=== PATIENT | female | born 1965 | race Caucasian/White ===

== ENCOUNTER 2018-05-01 12:04 | Emergency (ER) | payer OTHER ==
[~2018-05-01] VITALS: Ht 162.6 cm; Wt 94.0 kg
[~2018-05-01 12:04] MED LIST: ATIVAN1 M1 PO; BENTYL10 MG PO; CIPROFLOXACIN500 MG PO; LEVOTHYROXINE50 MCG PO; LIPITOR20 M2 PO; ONDANSETRON ODT4 MG PO; PYRIDIUM100 MG PO; SERTRALINE HCL100 MG PO; VICODIN5-300 PO; ZOFRAN4 M1 PO
[2018-05-01 12:43] LABS: ABSOLUTE BASOPHIL COUNT 0 /CUMM (0.0-0.2); ABSOLUTE EOSINOPHIL COUNT 0.1 /CUMM (0.0-0.7); ABSOLUTE GRANULOCYTE CT 2.5 /CUMM (1.4-6.5); ABSOLUTE LYMPH COUNT 2.1 /CUMM (1.2-3.4); ABSOLUTE MONOCYTE COUNT 0.6 /CUMM (0.10-0.60); BASOPHIL % 0.6 % (0.0-2.0); EOSINOPHIL % 1.5 % (0-5); GRANULOCYTE % 48.1 % (42.2-75.2); HEMATOCRIT 39.1 % (37-47); MEAN CORPUSCULAR HGB 28.3 PG (27.0-31.0); MEAN CORPUSCULAR HGB CONC 34.3 G/DL (33.0-37.0); MEAN CORPUSCULAR VOLUME 82.4 FL (81.0-99.0); MEAN PLATELET VOLUME 8.8 FL (7.4-10.4); PLATELET COUNT 255 /CUMM (130-400); RBC DISTRIBUTION WIDTH 14.1 % (11.5-14.5); RED BLOOD CELL CT 4.74 /CUMM (4.20-5.40); WHITE BLOOD CELL COUNT 5.3 /CUMM (4.8-10.8)
--- NOTE | 2018-05-01 13:52 | ED GI/GU/ABDOMINAL COMPLAINT ---
History of Present Illness General Chief Complaint: Abdominal Pain/Flank Pain Stated Complaint: ABD PAIN Source: patient Exam Limitations: no limitations Vital Signs & Intake/Output Vital Signs & Intake/Output Vital Signs Date Time Temp Pulse Resp B/P B/P Pulse O2 O2 Flow FiO2 Mean Ox Delivery Rate 05/01 1426 Room Air 05/01 1425 98.8 72 18 121/68 97 Room Air 05/01 1210 97.7 78 20 141/93 99 Room Air ED Intake and Output 05/02 0000 05/01 1200 Intake Total 0 Output Total Balance 0 Intake, Oral 0 Patient 207 lb Weight Weight Estimated Measurement Method Allergies Coded Allergies: venom-honey bee (BEE VENOM (HONEY BEE)) (Severe, ANAPHYLAXIS 11/18/15) amoxicillin (NAUSEA 11/18/15) Reconcile Medications Atorvastatin Calcium (Lipitor) 20 MG TABLET 1 TAB PO DAILY CHOLESTEROL ( Reported) Hydrocodone/Acetaminophen ([place] 5-325 Tablet) 5 MG-325 MG TABLET 1 TAB PO Q4- 6 PRN PRN PAIN SEVERE ONLY Ibuprofen 800 MG TABLET 1 TAB PO TID PRN PAIN Levothyroxine Sodium 50 MCG TABLET 1 TAB PO DAILY AC THYROID (Reported) LORazepam (Ativan) 1 MG TAB 1 TAB PO TID ANXIETY (Reported) Meclizine HCl 25 MG TABLET 1 TAB PO TIDPRN DIZZY Sertraline HCl 100 MG TABLET 1 TAB PO DAILY MENTAL HEALTH (Reported) Triage Note: PT SENT TO ED BY DR FRANKLIN FOR RLQ PAIN RADIATING TO BACK X A FEW DAYS. ALSO C/O NAUSEA AND VERTIGO. PT WENT TO SEE DR FRANKLIN FOR ? UTI, PT STATES HER URINE WAS FINE. Triage Nurses Notes Reviewed? yes LMP (ages 10-50): unknown ? N Is pt currently ? No Onset: Abrupt Duration: day(s): (3-4), constant, continues in ED Timing: single episode today Severity Numbers: 7 Location: right lower quadrant Radiation: back Prior Abdominal Problems: none Past Sexual History: Unobtainable at this time HPI: 52-year-old female past medical history of hyperlipidemia, hypothyroidism presents for evaluation of right lower quadrant abdominal pain. Patient reports symptoms started about 4 days ago and been persistent. The pain is located in the right lower quadrant and radiates to the right flank and right back. She reports some associated nausea but no vomiting no diarrhea no fevers urinary symptoms vaginal discharge or vaginal bleeding. There is no trauma or triggering event. No bowel or bladder dysfunction or numbness or tingling she's been taking ibuprofen without much improvement. She went to her primary care doctor today for evaluation of the pain but was sent in to rule out appendicitis. Past History Travel History Traveled to [place] past 21 day No Medical History Any Pertinent Medical History? see below for history Neurological: NONE EENT: NONE Cardiovascular: hyperlipidemia Respiratory: NONE Gastrointestinal: NONE Hepatic: NONE Renal: NONE Musculoskeletal: NONE Psychiatric: anxiety, depression Endocrine: hypothyroidism Blood Disorders: NONE Cancer(s): NONE PRODUCT MANAGEMENT MANAGER/Reproductive: NONE Surgical History Surgical History: non-contributory Psychosocial History What is your primary language Uzbek Tobacco Use: Never used ETOH Use: occasional use Illicit Drug Use: denies illicit drug use Family History Hx Contributory? No Review of Systems Review of Systems Constitutional: Reports: no symptoms. EENTM: Reports: no symptoms. Respiratory: Reports: no symptoms. Cardiovascular: Reports: no symptoms. GI: Reports: see HPI, abdominal pain, nausea. Genitourinary: Reports: no symptoms. Musculoskeletal: Reports: see HPI, back pain. Skin: Reports: no symptoms. Neurological/Psychological: Reports: no symptoms. Hematologic/Endocrine: Reports: no symptoms. Immunologic/Allergic: Reports: no symptoms. All Other Systems: Reviewed and Negative Physical Exam Physical Exam General Appearance: well developed/nourished, no apparent distress, alert, awake Head: atraumatic, normal appearance Eyes: Bilateral: normal appearance, PERRL, EOMI. Ears, Nose, Throat, Mouth: moist mucous membrane Neck: normal inspection, supple, full range of motion Respiratory: normal breath sounds, chest non-tender, no respiratory distress, lungs clear Cardiovascular: regular rate/rhythm, normal peripheral pulses Peripheral Pulses: 2+ radial (R), 2+ radial (L) Gastrointestinal: normal bowel sounds, soft, no organomegaly, tenderness (RLQ) Back: normal inspection, normal range of motion, no vertebral tenderness, RIGHT- SIDED LUMBAR PARASPINAL MUSCLE IS TENDER TO PALPATION. nO MIDLINE TENDERNESS NO cva TENDERNESS Extremities: normal range of motion Neurologic/Psych: no motor/sensory deficits, awake, alert, oriented x 3, normal gait, normal mood/affect Skin: intact, normal color, warm/dry Core Measures ACS in differential dx? No Sepsis Present: No Sepsis Focused Exam Completed? No Progress Differential Diagnosis: appendicitis, biliary colic, bowel obstruction, cholecystitis, inflamm bowel dis, kidney stone, pancreatitis, perforated viscous , SBO, UTI/pyelo Plan of Care: Orders Procedure Date/time Status URINALYSIS 05/01 1211 Complete LIPASE 05/01 1211 Complete COMPREHENSIVE METABOLIC PANEL 05/01 1211 Complete CBC WITHOUT DIFFERENTIAL 05/01 1211 Complete Laboratory Tests 05/01/18 1231: Urine Color YEL, Urine Clarity CLEAR, Urine pH 7.5, Ur Specific [place] 1.010, Urine Protein NEG, Urine Ketones NEG, Urine Nitrite NEG, Urine Bilirubin NEG, Urine Urobilinogen 0.2, Ur Leukocyte Esterase NEG, Ur Microscopic SEDIMENT EXAMINED, Urine RBC RARE, Urine WBC RARE, Ur Epithelial Cells RARE, Urine Hemoglobin TRACE-INTACT, Urine Glucose NEG 05/01/18 1226: Anion Gap 8, Estimated GFR > 60, BUN/Creatinine Ratio 15.6, Glucose 99, Calcium 10.0, Total Bilirubin 0.5, AST 23, ALT 28, Alkaline Phosphatase 74, Total Protein 7.7, Albumin 4.8, Globulin 2.9, Albumin/Globulin Ratio 1.7, Lipase 86, CBC w Diff NO MAN DIFF REQ, RBC 4.74, MCV 82.4, MCH 28.3, MCHC 34.3, RDW 14.1, MPV 8.8, Gran % 48.1, Lymphocytes % 39.1, Monocytes % 10.7 H, Eosinophils % 1.5 , Basophils % 0.6, Absolute Granulocytes 2.5, Absolute Lymphocytes 2.1, Absolute Monocytes 0.6, Absolute Eosinophils 0.1, Absolute Basophils 0 Patient is here for evaluation of right lower quadrant abdominal pain this been going on for about 4 days. The pain radiates into the flank and back. She's never had this before and denies abdominal surgeries no fevers reports nausea but no vomiting. Her vital signs are stable. Labs and a CT scan was ordered. Blood work and CT scan are unremarkable. Reviewed results with patient. Advised to continue ibuprofen as needed for pain and Zofran for nausea [place] for severe pain only advised to fern picker a stool softener with this. Follow-up with the primary care doctor for recheck. Discussed return precautions patient agrees the plan Diagnostic Imaging: Viewed by Me: CT Scan. Discussed w/RAD: CT Scan. Radiology Impression: PATIENT: CAREN JEFFERS V PRESENT AGE: 52 PATIENT ACCOUNT NO: [id number] : 63 LOCATION: [facility] ORDERING PHYSICIAN: Umair DOSS SERVICE DATE: 05/01/18 EXAM TYPE: CAT - CT ABD & PELVIS W IV CONTRAST EXAMINATION: CT ABDOMEN AND PELVIS WITH CONTRAST CLINICAL INFORMATION: Right lower quadrant abdominal pain, nausea. Presumptive diagnosis of appendicitis. COMPARISON: T scan of the abdomen and pelvis dated 08/24/2015, and 06/16/2013. TECHNIQUE: Multidetector CT volumetric acquisition of the abdomen and pelvis was performed after the administration of 95 mL of intravenous Optiray 320. The data set was reformatted in the sagittal and coronal planes and reviewed on an independent workstation. DLP: 415.35 mGy-cm. FINDINGS: LOWER CHEST: Included lung bases unremarkable. LIVER, GALLBLADDER, BILIARY TREE: Liver normal size and attenuation. No focal cystic or solid mass or intra-or extrahepatic ductal dilatation. Hepatic and portal veins patent. Gallbladder partially distended and within normal limits. PANCREAS: Normal. No ductal dilatation, mass, or surrounding stranding. SPLEEN: Normal size and appearance. Splenic vein patent. ADRENAL GLANDS AND KIDNEYS: Adrenal glands normal. Kidneys bilaterally symmetric in size and function. No focal mass, hydronephrosis, nephrolithiasis or perinephric stranding. URETERS AND BLADDER: Ureters decompressed and within normal limits. Bladder partially distended and within normal limits. PELVIC ORGANS: Again seen is a subserosal contour deforming posterior and left-sided uterine body fibroid, unchanged. Small amount of gas seen in the vagina, likely due to exogenous introduction. No suspicious adnexal mass. GASTROINTESTINAL TRACT: Normal. Small and large bowel loops decompressed. Appendix is not definitively visualized in its entirety, but no focal inflammatory process is seen in the right lower quadrant and the appearance is unchanged compared to prior exams. ABDOMINAL WALL: Tiny fat- containing umbilical hernia is seen. LYMPHOVASCULAR STRUCTURES: Abdominal aorta normal in caliber. No periaortic collections. No abdominal or pelvic adenopathy or free fluid collection. BONES: Moderate degenerative disc disease at the lumbosacral junction with disc space narrowing, vacuum disc phenomenon and vertebral endplate sclerosis and spurring seen. Mild facet arthropathy in lower lumbar spine. IMPRESSION: 1. No acute intra-abdominal or pelvic process seen. 2. Small uterine fibroid. 2. Compared to prior exam, no significant interval change is seen. DICTATED BY: Agueda Botello MD DATE/TIME DICTATED:05/01/181330 FRENCH INSTRUCTOR:JOSHUA DATE/TIME TRANSCRIBED:05/01/181330 CONFIDENTIAL, DO NOT COPY WITHOUT APPROPRIATE AUTHORIZATION. <Electronically signed in Other Vendor System> SIGNED BY: Agueda Botello MD 05/01/18 1350 Initial ED EKG: none Departure Departure Disposition: HOME OR SELF CARE Condition: Stable Clinical Impression Primary Impression: Abdominal pain Qualifiers: Abdominal location: right lower quadrant Qualified Code: R10.31 - Right lower quadrant pain Referrals: Rose HARP,Dallin Feliz (PCP/Family) Additional Instructions: Rest, avoid excessive physical activity. Drink plenty of fluids. Meclizine as needed for nausea or dizziness. Ibuprofen for pain. [place] FOR SEVERE PAIN ONLY. historic sites supervisor a stool softener or laxative like MiraLAX or Colace. Make a follow-up appointment with your primary care doctor to review all results of today's visit. Monitor symptoms closely return with any concerns. Please go over all results of today's visit with your primary care doctor. Contact your primary care doctor to let them know you were here in the emergency room. There may be nonspecific findings which may not be related to your visit today here in the emergency room but may require further evaluation and chronic monitoring by your primary care doctor. If you had a laceration today the chance of foreign body always remains. You should follow-up with your primary care doctor for recheck in 3-5 days for a wound check. If you had an x-ray done there is a chance that a fracture could have been missed on initial read and you should follow-up with your primary care doctor for repeat x-rays if symptoms persist. If your blood pressure was elevated here in the emergency room please have rechecked by her primary care doctor within the next 48 hours by your primary care doctor. If you were prescribed a narcotic here in the emergency room or any type of controlled substances you're not allowed to drive while taking this medication or operate any type of heavy machinery. Narcotics can make you feel lightheaded dizziness nausea and can cause constipation. You may need to fern picker a stool softener. Thank you for choosing emergency room. Please return to the emergency room immediately if you have any other concerns worsening of symptoms. Departure Forms: Customer Survey General Discharge Information Prescriptions: Current Visit Scripts Ibuprofen 1 TAB PO TID PRN PAIN #30 TAB Meclizine HCl 1 TAB PO TIDPRN #30 TAB Hydrocodone/Acetaminophen ([place] 5-325 Tablet) 1 TAB PO Q4-6 PRN PRN PAIN SEVERE ONLY #5 TAB
[2018-05-01] MEDS ORDERED: MECLIZINE HCL25 MG PO ×2 (14:02→14:30)
[2018-05-01] MEDS ORDERED: IBUPROFEN800 M1 PO (14:02)
[2018-05-01 14:25] VITALS: BP 121/68
[2018-05-01] MEDS ORDERED: NORCO 5-325 TA1 EACH PO (14:31)
== END 2018-05-01 14:30 ==
LOC: ERH 12:04
PROVIDERS: Physician Assistant Medical
DX: R10.31 Right lower quadrant pain (principal)
CPT/HCPCS: 74177; 81001